=== PATIENT | female | born 1995 | race Caucasian/White ===

== ENCOUNTER 2018-08-08 20:07 | Emergency (ER) | payer OTHER ==
[2018-08-08 20:13] VITALS: BP 134/66
[2018-08-08] MEDS ORDERED: SERT-1 PO (20:17)
[2018-08-08] MEDS ORDERED: ETON68IM SQ (20:17)
--- NOTE | 2018-08-08 20:18 | ER Report ---
History and Physical Time Seen By MD: 20:18 Hx. of Stated Complaint: PT REPORTS STARTING ZOLOFT 1 WEEK AGO. PT REPORTS THAT TODAY SHE FEELS FLUSHED AND LIKE HER TONGUE IS SWELLING. PT REPORTS TAKING 2 BENADRYL 30 MINUTES AGO. HPI/ROS CHIEF COMPLAINT: Allergic reaction HISTORY OF PRESENT ILLNESS: 22-year-old female patient presents to emergency room with complaint of allergic reaction. Patient states she is started on Zoloft one week ago. She states that she was starting off with a half dose. She will take that at night and noticed that her cheeks be itchy. She initially thought that it was because of her cats, which she does have an allergy to. She states that she took a dose today at 1:00. She knows that she had significant amounts of hives to her cheeks and itching. She states she feels like her tongue was starting swell up. She did take 2 Benadryl prior to coming to the emergency room. She states that she is traveling alone she is concerned about having problems as she is sleeping. She denies any nausea, vomiting or diarrhea. Allergies: Coded Allergies: amoxicillin (Verified Allergy, Intermediate, "VOMITING", 08/08/18) Home Meds Reported Medications Sertraline Hcl (ZOLOFT) 50 Mg Tablet, 1 TAB PO QDAY, TAB 08/08/18 Etonogestrel (NEXPLANON) 68 Mg Implant, 68 MG SQ DIRECTED, IMPLANT 08/08/18 Past Medical/Surgical History Patient has a past medical history of fractured toes, OCD. Patient has surgical history of left shoulder surgery, wisdom teeth removal, tonsillectomy. Reviewed Nurses Notes: Yes Constitutional Vital Sign - Last 24 Hours 08/08/18 20:13 Temp 99.1 Pulse 92 Resp 16 B/P (MAP) 134/66 Pulse Ox 95 O2 Delivery Room Air Physical Exam General appearance: Alert no distress. Respiratory: Chest is non tender, lungs are clear to auscultation. Cardiac: Regular rate and rhythm. Skin: Patient does have hives to both cheeks. DIFFERENTIAL DIAGNOSIS: After history and physical exam differential diagnosis was considered for allergic reaction. Medical Decision Making ED Course/Re-evaluation ED Course Patient was admitted to an exam room, history and physical were obtained. Differential diagnoses were considered. On examination lungs are clear, heart is regular, abdomen is soft and nontender. Patient does have redness and hives to the bilateral cheeks. An IV was started, patient received a liter of normal saline, 125 of Medrol, 20 of Pepcid. On reevaluation the redness and hives have improved significantly. We will go ahead and discharge her home this time. I do want her to touch base with her primary care provider to see if they want to start her on a different medication. She is return to emergency room if condition worsens. She is to increase fluid intake and get plenty of rest. Patient verbalized understanding and agreement with plan. Decision to Disposition Date: Aug 08, 2018 Decision to Disposition Time: 21:41 Depart Departure Latest Vital Signs Vital Signs Date Time Temp Pulse Resp B/P (MAP) Pulse Ox O2 Delivery O2 Flow Rate FiO2 08/08/18 20:13 99.1 92 16 134/66 95 Room Air Impression: Primary Impression: Allergic reaction caused by a drug Condition: Improved Disposition: HOME OR SELF-CARE New Scripts Famotidine (PEPCID) 20 Mg Tablet 20 MG PO QDAY, #15 TAB Prov: MARBELLA MEDELLIN 08/08/18 Prednisone (PREDNISONE) 20 Mg Tablet 40 MG PO DAILY, #8 TAB Prov: MARBELLA MEDELLIN 08/08/18 Patient Instructions: General Allergic Reaction (ED) Additional Instructions: Stop taking the Lexapro. Get plenty of rest. Increase fluid intake. Touch base with your primary care provider on Saturday to see if they want to start you on different medications. Return to the ER if condition worsens. Problem Qualifiers Primary Impression: Allergic reaction caused by a drug Encounter type: initial encounter Qualified Codes: T78.40XA - Allergy, unspecified, initial encounter MARBELLA MEDELLIN Aug 08, 2018 20:18
[2018-08-08] MEDS ORDERED: FAMOTIDINE(*) 20MG/50ML PREMIX 50 ML IVPB ONE (20:25)
[2018-08-08] MEDS ORDERED: NS(*) 0.9% 1000 ML BAG 1,000 ML IV ONE (20:25)
[2018-08-08] MEDS ORDERED: methylPREDNIS SUCC 125 MG/2ML IVP ONE (20:25)
[2018-08-08] MEDS ORDERED: PRED20TA6 PO (21:42)
[2018-08-08] MEDS ORDERED: FAMO20TA28 PO (21:42)
[2018-08-08] MEDS ORDERED: predniSONE 20 MG TAB PO ONE (21:50)
== END 2018-08-08 22:00 | disposition home or self-care (01) ==
LOC: ER 20:23
DX: T43.225A Adverse effect of selective serotonin reuptake inhibitors, initial encounter (principal)
CPT/HCPCS: 96365; 96375; 99284; J2930; J7030; J7512